=== PATIENT | female | born 1960 | race Caucasian/White ===

== ENCOUNTER 2018-04-22 04:04 | Inpatient (IN) | payer OTHER ==
[~2018-04-22] VITALS: Ht 170.2 cm; Wt 77.1 kg
--- NOTE | 2018-04-22 04:26 | ED GI/GU/ABDOMINAL COMPLAINT ---
History of Present Illness General Chief Complaint: Abdominal Pain/Flank Pain Stated Complaint: PT C/O ABD PAIN SINCE YESTERDAY AFTERNOON,+N/V/D Source: patient, family Exam Limitations: no limitations Vital Signs & Intake/Output Vital Signs & Intake/Output Vital Signs Date Time Temp Pulse Resp B/P B/P Pulse O2 O2 Flow FiO2 Mean Ox Delivery Rate 04/22 0415 99.8 103 20 114/77 97 Room Air Allergies Coded Allergies: Penicillins (UNKNOWN 04/22/18) Triage Note: PT FROM HOME WITH C/O LOWER ABD PAIN AILYN IS SHARP ON RIGHT LOWE RQUAD AND DULL ON LEFT LOWER QUAD. PT REPORTS +N/V/D. DENIES HX OF KIDNEY STONES. Triage Nurses Notes Reviewed? yes ? n Is pt currently ? No Onset: Gradual Duration: hour(s): Timing: recent history Quality/Severity: cramping Location: suprapubic Radiation: no radiation Activities at Onset: none Modifying Factors: Worsens With: palpation, vomiting. Associated Symptoms: abdominal pain, diarrhea, nausea/vomiting HPI: 57 yo woman h/o diverticulosis, IBS presents with nausea, vomiting, diarrhea since yesterday at approximately 2:30pm , soon after eating a lettuce salad at a restaurant. She shares that "I just keep vomiting... and the diarrhea is bad." She notes also right lower quadrant, left lower quadrant abdominal pain, sharp, associated with nausea and vomiting. She has no fever, chills, chest pain. Past History Travel History Traveled to [place] past 21 day No Medical History Any Pertinent Medical History? 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 No Review of Systems Review of Systems Constitutional: Reports: no symptoms. EENTM: Reports: no symptoms. Respiratory: Reports: no symptoms. Cardiovascular: Reports: no symptoms. GI: Reports: no symptoms. Genitourinary: Reports: no symptoms. Musculoskeletal: Reports: no symptoms. Skin: Reports: no symptoms. Neurological/Psychological: Reports: no symptoms. Hematologic/Endocrine: Reports: no symptoms. Immunologic/Allergic: Reports: no symptoms. All Other Systems: Reviewed and Negative Physical Exam Physical Exam General Appearance: well developed/nourished, moderate distress Head: atraumatic, normal appearance Eyes: Bilateral: normal appearance. Ears, Nose, Throat, Mouth: hearing grossly normal, moist mucous membrane Neck: normal inspection, supple, full range of motion Respiratory: normal breath sounds Cardiovascular: regular rate/rhythm Gastrointestinal: normal bowel sounds, soft, right and left lower quadrant tenderness to palpation, no distension. Back: normal inspection Extremities: normal range of motion Neurologic/Psych: no motor/sensory deficits, awake, alert, oriented x 3 Skin: intact, normal color, warm/dry Core Measures ACS in differential dx? No Sepsis Present: No Sepsis Focused Exam Completed? No Progress Differential Diagnosis: food poisoning vs diverticulitis vs other. Plan of Care: Orders Procedure Date/time Status Nothing by Mouth 04/22 B Active Saline Lock 04/22 522 Active Misc Message 04/22 522 Active ED Holding Orders 04/22 522 Active Admit to inpatient 04/22 522 Active Vital Signs 04/22 522 Active Code Status 04/22 522 Active TROPONIN LEVEL 04/22 408 Complete LIPASE 04/22 040 Complete HEPATIC FUNCTION PANEL 04/22 408 Complete CBC WITHOUT DIFFERENTIAL 04/22 408 Complete BASIC METABOLIC PANEL 04/22 0408 Complete AMYLASE 04/22 040 Complete EKG 04/22 408 Active Current Medications Sig/Eleno Start time Last Medication Dose Stop Time Status Admin Metronidazole 500 MG ONCE ONE 04/22 0515 AC (Flagyl) 04/22 0614 N/A 1 UNIT (No Carrier) Sodium Chloride 1,000 ML BOLUS ONE 04/22 0445 AC 04/22 (Normal Saline 0.9%) 04/22 0544 0444 Laboratory Tests 04/22/18 0445: Anion Gap 11, Estimated GFR > 60, BUN/Creatinine Ratio 14.4, Glucose 162 H, Calcium 9.6, Total Bilirubin 1.2, Direct Bilirubin 0.3, AST 20, ALT 24, Alkaline Phosphatase 84, Troponin I < 0.01, Total Protein 7.3, Albumin 4.3, Amylase 61, Lipase 32, CBC w Diff MAN DIFF ORDERED, RBC 4.94, MCV 82.3, MCH 27.7, MCHC 33.7, RDW 13.7, MPV 8.7, Gran % 91.6 H, Lymphocytes % 5.2 L, Monocytes % 3.0, Eosinophils % 0, Basophils % 0.2, Absolute Granulocytes 15.4 H, Segmented Neutrophils 92 H, Band Neutrophils 1, Absolute Lymphocytes 0.9 L, Lymphocytes 6 L, Monocytes 1 L, Absolute Monocytes 0.5, Absolute Eosinophils 0, Absolute Basophils 0, Platelet Estimate ADEQUATE, Normocytic RBCs VERIFIED, Normochromic RBCs VERIFIED, Fld Total RBCs Counted 100 Initial ED EKG: sinus, no acute changes Departure Departure Disposition: STILL A PATIENT Condition: Stable Clinical Impression Primary Impression: Abdominal pain Secondary Impressions: Diverticulitis of colon with perforation Referrals: Jaron Valiente MD (PCP/Family) Departure Forms: Customer Survey General Discharge Information Admission Note Spoke With: Kevin MARTINEZ,Pardeep Sun Documentation of Exam: Documentation of any treatments & extenuating circumstances including Concerns Regarding Discharge (functional status, medication knowledge or non-compliance, living conditions, etc.) that warrant an admission rather than observation: pt with perforated diverticulitis, merits iv abx, bowel rest.
[2018-04-22 04:54] LABS: ABSOLUTE BASOPHIL COUNT 0 /CUMM (0.0-0.2); ABSOLUTE EOSINOPHIL COUNT 0 /CUMM (0.0-0.7); ABSOLUTE GRANULOCYTE CT 15.4 /CUMM (1.4-6.5); ABSOLUTE LYMPH COUNT 0.9 /CUMM (1.2-3.4); ABSOLUTE MONOCYTE COUNT 0.5 /CUMM (0.10-0.60); BASOPHIL % 0.2 % (0.0-2.0); EOSINOPHIL % 0 % (0-5); GRANULOCYTE % 91.6 % (42.2-75.2); HEMATOCRIT 40.7 % (37-47); MEAN CORPUSCULAR HGB 27.7 PG (27.0-31.0); MEAN CORPUSCULAR HGB CONC 33.7 G/DL (33.0-37.0); MEAN CORPUSCULAR VOLUME 82.3 FL (81.0-99.0); MEAN PLATELET VOLUME 8.7 FL (7.4-10.4); PLATELET COUNT 226 /CUMM (130-400); RBC DISTRIBUTION WIDTH 13.7 % (11.5-14.5); RED BLOOD CELL CT 4.94 /CUMM (4.20-5.40); WHITE BLOOD CELL COUNT 16.8 /CUMM (4.8-10.8)
--- NOTE | 2018-04-22 05:15 | CT SCAN REPORT ---
EXAMINATION: CT ABDOMEN AND PELVIS WITHOUT CONTRAST CLINICAL INFORMATION: Abdominal pain. COMPARISON: None TECHNIQUE: Multidetector volumetric imaging was performed from the superior aspect of the liver through the pubic symphysis. Sagittal and coronal reformatted images were obtained on the technologist's workstation. DLP: 713 mGy-cm FINDINGS: LUNG BASES: The visualized lung bases are unremarkable. LIVER, GALLBLADDER, AND BILIARY TREE: The liver is normal in size, shape, and attenuation. No focal hepatic lesion or biliary ductal dilatation is present. Prominent gallstones in the gallbladder lumen. No gallbladder wall thickening or pericholecystic fluid. PANCREAS: Unremarkable. SPLEEN: Unremarkable. ADRENAL GLANDS: Unremarkable. KIDNEYS AND URETERS: The kidneys are normal in size, shape, and attenuation. No hydronephrosis, hydroureter, or calculi seen. No perinephric stranding. BLADDER: Unremarkable. GASTROINTESTINAL TRACT: The stomach is decompressed. The small bowel is normal in caliber. No obstruction. There is colonic diverticulosis. Wall thickening of the sigmoid colon with adjacent inflammation, consistent with diverticulitis. Small foci of gas are seen extraluminally, as seen on series 2 image 82. More distal extent of free air noted in the right anterior abdomen, series 2 image 45. No fluid collection. ABDOMINAL WALL: No significant hernia is appreciated. LYMPH NODES: Normal. VASCULAR: Retroaortic left renal vein. Normal caliber aorta. PELVIC VISCERA: The uterus and adnexa are unremarkable. OSSEOUS STRUCTURES: No acute or suspicious osseous abnormality. IMPRESSION: Sigmoid diverticulitis. Perforation with multiple small foci of gas noted extraluminally. Cholelithiasis. This critical result was discussed with John Shah MD by telephone at 04/22/2018 5:11 AM and it was ascertained that the content and urgency of the report was understood at the time of direct communication.
--- NOTE | 2018-04-22 06:01 | History & Physical Pre-Op ---
Alma Moses 04/22/18 0556: General Information and HPI History of Present Illness: 57yoF presents to Ed with complaints of lower abdominal pain. PMHx significant for known diverticulosis seen on colonoscopy. 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 Surgical History Pertinent Surgical History: none Past Family/Social History Psychosocial History ETOH Use: occasional use Illicit Drug Use: denies illicit drug use Exam & Diagnostic Data Last 24 Hrs of Vital Signs/I&O Vital Signs Date Time Temp Pulse Resp B/P B/P Pulse O2 O2 Flow FiO2 Mean Ox Delivery Rate 04/225 99.8 103 20 114/77 97 Room Air Intake & Output 04/22 0800 04/22 0000 04/21 1600 Intake Total 0 Output Total Balance 0 Intake, Oral 0 Patient 210 lb Weight Weight Reported by Patient Measurement Method Last 24 Hrs of Labs/Lorenzo: Laboratory Tests 04/22/18 0445: Anion Gap 11, Estimated GFR > 60, BUN/Creatinine Ratio 14.4, Glucose 162 H, Calcium 9.6, Total Bilirubin 1.2, Direct Bilirubin 0.3, AST 20, ALT 24, Alkaline Phosphatase 84, Troponin I < 0.01, Total Protein 7.3, Albumin 4.3, Amylase 61, Lipase 32, CBC w Diff MAN DIFF ORDERED, RBC 4.94, MCV 82.3, MCH 27.7, MCHC 33.7, RDW 13.7, MPV 8.7, Gran % 91.6 H, Lymphocytes % 5.2 L, Monocytes % 3.0, Eosinophils % 0, Basophils % 0.2, Absolute Granulocytes 15.4 H, Segmented Neutrophils 92 H, Band Neutrophils 1, Absolute Lymphocytes 0.9 L, Lymphocytes 6 L, Monocytes 1 L, Absolute Monocytes 0.5, Absolute Eosinophils 0, Absolute Basophils 0, Platelet Estimate ADEQUATE, Normocytic RBCs VERIFIED, Normochromic RBCs VERIFIED, Fld Total RBCs Counted 100 Diagnostic Data Other Results SERVICE DATE: 04/22/18-436 EXAM TYPE: CAT - CT ABD & PELVIS W/O IV CONTRAS EXAMINATION: CT ABDOMEN AND PELVIS WITHOUT CONTRAST CLINICAL INFORMATION: Abdominal pain. COMPARISON: None TECHNIQUE: Multidetector volumetric imaging was performed from the superior aspect of the liver through the pubic symphysis. Sagittal and coronal reformatted images were obtained on the technologist's workstation. DLP: 713 mGy-cm FINDINGS: LUNG BASES: The visualized lung bases are unremarkable. LIVER, GALLBLADDER, AND BILIARY TREE: The liver is normal in size, shape, and attenuation. No focal hepatic lesion or biliary ductal dilatation is present. Prominent gallstones in the gallbladder lumen. No gallbladder wall thickening or pericholecystic fluid. PANCREAS: Unremarkable. SPLEEN: Unremarkable. ADRENAL GLANDS: Unremarkable. KIDNEYS AND URETERS: The kidneys are normal in size, shape, and attenuation. No hydronephrosis, hydroureter, or calculi seen. No perinephric stranding. BLADDER: Unremarkable. GASTROINTESTINAL TRACT: The stomach is decompressed. The small bowel is normal in caliber. No obstruction. There is colonic diverticulosis. Wall thickening of the sigmoid colon with adjacent inflammation, consistent with diverticulitis. Small foci of gas are seen extraluminally, as seen on series 2 image 82. More distal extent of free air noted in the right anterior abdomen, series 2 image 45. No fluid collection. ABDOMINAL WALL: No significant hernia is appreciated. LYMPH NODES: Normal. VASCULAR: Retroaortic left renal vein. Normal caliber aorta. PELVIC VISCERA: The uterus and adnexa are unremarkable. OSSEOUS STRUCTURES: No acute or suspicious osseous abnormality. IMPRESSION: Sigmoid diverticulitis. Perforation with multiple small foci of gas noted extraluminally. Cholelithiasis. Assessment/Plan Assessment/Plan: A- 57yoF with sigmoid diverticulitis with microperforation, P- connservative mgmt with rocephin/flagyl npo ivf, iv meds prn pain meds, antiemetics trend labs will dw Bonnie Guardado 04/22/18 7118: General Information and HPI History of Present Illness: This a 57 yo female, previously healthy, that presented to the ED with complaints of nausea/vomiting/diarrhea of one day duration. The pt has a PMHx of diverticulosis and IBS. This all began yesterday after she went out to lunch and ate a salad and soup and upon coming home at 2:30 pm she began having sharp abdominal pain. The pain is in her RLQ and LLQ and today it is worst in her RLQ. Yesterday the pt had 4 episodes of vomiting w/ associated nausea and diarrhea. She tried taking some imodium at home without relief. The pain is sharp in nature and has been worsening since yesterday. Any movement or jarring worsens the pt's pain and this morning it got so bad that she came the ED. Pt denies any blood in stool, flank pain, recent travel, cp, sob. Past History Medical History Gastrointestinal: diverticulitis, irritable bowel syndrome Surgical History Pertinent Surgical History: none Past Family/Social History Family History Relations & Conditions if any BROTHER Relation not specified for: FHx: diverticulitis Irritable bowel syndrome Review of Systems Review of Systems Constitutional: Reports: chills. Denies: diaphoresis, fever. Cardiovascular: Denies: chest pain. Respiratory: Denies: short of breath. GI: Reports: abdominal pain, diarrhea, nausea, vomiting. Denies: bloody stool. Genitourinary: Reports: dysuria, pain. Skin: Denies: change in skin color, rash. Exam & Diagnostic Data Last 24 Hrs of Vital Signs/I&O Vital Signs Date Time Temp Pulse Resp B/P B/P Pulse O2 O2 Flow FiO2 Mean Ox Delivery Rate 04/22 0609 98.9 77 18 94/51 93 Room Air 04/22 0415 99.8 103 20 114/77 97 Room Air Intake & Output 04/22 0800 04/22 0000 04/21 1600 Intake Total 1000 Output Total Balance 1000 Intake, IV 1000 Intake, Oral 0 Patient 210 lb Weight Weight Reported by Patient Measurement Method Exam: Gen: Pt is O&Ax3, laying in bed, appears in pain, in no acute distress Lungs: CTA Heart: RRR, s1 and s2 normal Abdomen: hyperactive bs, soft, non-distended, tenderness to palpation of RLQ and LLQ. No rebound tenderness. Skin: warm and dry Ext: no edema bilaterally Assessment/Plan As Ranked By This Provider Problem List: 1. Diverticulitis of colon with perforation 2. 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 Patient seen and examined 04/22/2008 at 8:30 AM. Patient presents with acute onset, first episode of severe lower abdominal pain after eating a salad for lunch. She experience nausea vomiting diarrhea followed by pain. It has been unrelenting. Diverticulosis by colonoscopy [address] scan shows acute diverticulitis. Past medical history is unrevealing. She is a non-smoker occasional drinker no illicit drug use. Examination reveals overweight woman in no distress alert and oriented. Lungs are clear and heart is regular. Abdomen shows focal involuntary guarding in left lower quadrant. There is tenderness throughout the suprapubic and right lower quadrant as well. No hernias no mass normal. Limited data shows leukocytosis of 16,000. Electrolytes within normal limits. CT scan images were personally reviewed and showed telemetry changes of the mid sigmoid colon. There is a foci of extraluminal air in the region. Impression is that of acute sigmoid diverticulitis with microperforation, first episode. There is no clinical indications that she will require emergency surgery. Plan will be medical with IV antibiotics and bowel rest. Serial abdominal examination will be performed.
[2018-04-22] MEDS ORDERED: CITRACAL + D E1 EACH PO (08:57)
[2018-04-22] MEDS ORDERED: CALTRATE 600 +1 EACH PO (08:58)
[2018-04-22 11:26] VITALS: BP 94/51
[2018-04-22 14:38] VITALS: BP 118/80
[2018-04-22 21:44] VITALS: BP 110/60
[2018-04-23 06:03] VITALS: BP 100/70
--- NOTE | 2018-04-23 07:33 | PN- General Surgery ---
See Addendum Subjective Subjective: Patient's he feels significantly better. States her symptoms are at a 4 out of 10. Mild pain in the lower abdominal region with palpation. She is hungry. She is passing gas. She denies any fever or flulike illness. The pain medication is helping her. She had a mild headache that was controlled with Tylenol overnight. No nausea no vomiting. No bowel movement Objective Vital Signs and I&Os Vital Signs Date Time Temp Pulse Resp B/P B/P Pulse O2 O2 Flow FiO2 Mean Ox Delivery Rate 04/23 0603 98.7 82 20 100/70 95 04/22 2144 99.4 83 20 110/60 95 04/22 1438 98.3 75 20 118/80 95 Room Air 04/22 1358 98.4 64 18 118/54 97 Room Air 04/22 1126 98.1 71 18 94/51 94 Room Air 04/22 0740 98.1 71 18 94/51 93 Room Air Intake & Output 04/23 0800 04/23 0000 04/22 1600 04/22 0800 04/22 0000 04/21 1600 Intake Total 2695 465 4947 1000 Output Total Balance 0742 465 7242 1000 Intake, IV 3420 967 9291 1000 Intake, Oral 0 300 0 Patient 170 lb 210 lb Weight Weight Estimated Reported by Patient Measurement Method Physical Exam: Well-developed well-nourished no apparent distress. HEENT: Atraumatic, extraocular motion intact Neck: Supple, no lymphadenopathy Respiratory: No respiratory distress Abdomen: Tenderness to the right and left lower quadrants which is mild. No peritoneal signs. Minimal distention. Positive bowel sounds. Extremities: No edema, no calf pain Neuro: Alert and oriented x3 Psych: Mood affect normal, normal memory normal judgment. Skin: Warm and dry, no rash on exposed skin Results Last 48 Hours of Labs: Laboratory Tests 04/23 04/22 0627 0445 Chemistry Sodium (137 - 145 mmol/L) Pending 136 L Potassium (3.5 - 5.1 mmol/L) Pending 4.1 Chloride (98 - 107 mmol/L) Pending 100 Carbon Dioxide (22 - 30 mmol/L) Pending 25 Anion Gap (5 - 16) Pending 11 BUN (7 - 17 mg/dL) Pending 13 Creatinine (0.5 - 1.0 mg/dL) Pending 0.9 Estimated GFR (>60 ml/min) > 60 BUN/Creatinine Ratio (7 - 25 %) Pending 14.4 Glucose (65 - 99 mg/dL) 162 H Calcium (8.4 - 10.2 mg/dL) 9.6 Total Bilirubin (0.2 - 1.3 mg/dL) 1.2 Direct Bilirubin (< 0.4 mg/dL) 0.3 AST (14 - 36 U/L) 20 ALT (9 - 52 U/L) 24 Alkaline Phosphatase (<127 U/L) 84 Troponin I (< 0.11 ng/ml) < 0.01 Total Protein (6.3 - 8.2 g/dL) 7.3 Albumin (3.5 - 5.0 g/dL) 4.3 Amylase (30 - 110 U/L) 61 Lipase (23 - 300 U/L) 32 Hematology CBC w Diff Pending MAN DIFF ORDERED WBC (4.8 - 10.8 /CUMM) Pending 16.8 H RBC (4.20 - 5.40 /CUMM) Pending 4.94 Hgb (12.0 - 16.0 G/DL) Pending 13.7 Hct (37 - 47 %) Pending 40.7 MCV (81.0 - 99.0 FL) Pending 82.3 MCH (27.0 - 31.0 PG) Pending 27.7 MCHC (33.0 - 37.0 G/DL) Pending 33.7 RDW (11.5 - 14.5 %) Pending 13.7 Plt Count (130 - 400 /CUMM) Pending 226 MPV (7.4 - 10.4 FL) Pending 8.7 Gran % (42.2 - 75.2 %) 91.6 H Lymphocytes % (20.5 - 51.1 %) 5.2 L Monocytes % (1.7 - 9.3 %) 3.0 Eosinophils % (0 - 5 %) 0 Basophils % (0.0 - 2.0 %) 0.2 Absolute Granulocytes (1.4 - 6.5 /CUMM) 15.4 H Segmented Neutrophils (42.2 - 75.2 %) 92 H Band Neutrophils (0.0 - 5.0 %) 1 Absolute Lymphocytes (1.2 - 3.4 /CUMM) 0.9 L Lymphocytes (20.5 - 51.1 %) 6 L Monocytes (1.7 - 9.3 %) 1 L Absolute Monocytes (0.10 - 0.60 /CUMM) 0.5 Absolute Eosinophils (0.0 - 0.7 /CUMM) 0 Absolute Basophils (0.0 - 0.2 /CUMM) 0 Platelet Estimate (ADEQUATE) ADEQUATE Normocytic RBCs VERIFIED Normochromic RBCs VERIFIED Other Body Source Fld Total RBCs Counted (%) 100 Assessment/Plan Assessment/Plan Hospital day #2 status post admission for sigmoid diverticulitis with microperforation Clinically improving Follow labs Continue IV fluids Continue Rocephin and Flagyl Heparin subcu for DVT prophylaxis Encourage ambulation Pain medication as needed, will convert to oral pain medicine Will discuss with Dr. Brown advancement of diet Core Measures Venous Thromboembolism VTE Risk Factors Age>40 No Mechanical VTE Prophylaxis d/t N/A MechProphylax Ordered No VTE Pharm Prophylaxis d/t NA PharmProphylax ordered
[2018-04-23 08:10] LABS: ABSOLUTE BASOPHIL COUNT 0 /CUMM (0.0-0.2); ABSOLUTE EOSINOPHIL COUNT 0.1 /CUMM (0.0-0.7); ABSOLUTE MONOCYTE COUNT 0.5 /CUMM (0.10-0.60); EOSINOPHIL % 0.5 % (0-5); MEAN CORPUSCULAR HGB 27.9 PG (27.0-31.0); MEAN CORPUSCULAR HGB CONC 33.4 G/DL (33.0-37.0)
[2018-04-23 08:24] LABS: ABSOLUTE GRANULOCYTE CT 9.6 /CUMM (1.4-6.5); ABSOLUTE LYMPH COUNT 1.4 /CUMM (1.2-3.4); BASOPHIL % 0.2 % (0.0-2.0); MEAN CORPUSCULAR VOLUME 83.4 FL (81.0-99.0); MEAN PLATELET VOLUME 9.5 FL (7.4-10.4); PLATELET COUNT 154 /CUMM (130-400); RBC DISTRIBUTION WIDTH 13.6 % (11.5-14.5); RED BLOOD CELL CT 3.87 /CUMM (4.20-5.40); WHITE BLOOD CELL COUNT 11.5 /CUMM (4.8-10.8)
[2018-04-23 08:30] LABS: HEMATOCRIT 32.3 % (37-47)
[2018-04-23] MEDS ORDERED: PERCOCET 5-3251 EACH PO (13:43)
[2018-04-23] MEDS ORDERED: AUGMENTIN 875-1 EACH PO (13:43)
--- NOTE | 2018-04-23 13:47 | Patient Discharge Instructions ---
Discharge Instructions General Discharge Information You were seen/treated for: Acute complicated diverticulitis with microperforation You had these procedures: None Watch for these problems: Worsening abdominal pain, nausea, vomiting, fever Other wound care: None Special Instructions: Avoid straining and excessive physical exertion until follow-up visit. Call the surgeon or present to the ER with above-mentioned concerns Continue taking her antibiotics as directed Take pain medication as needed,you may take Tylenol or Motrin as well Diet Continue normal diet: No Recommended Diet: Low Residue (/low fiber) Activity Full Activity/No Limits: No Activity Self Limited: Yes Acute Coronary Syndrome Inclusion Criteria At DC or during hospital stay patient has or had the following: ACS DIAGNOSIS No Discharge Core Measures Meds if any: Prescribed or Continued at Discharge Meds if any: NOT Prescribed or Continued at Discharge Congestive Heart Failure Inclusion Criteria At DC or during hospital stay patient has or had the following: CHF DIAGNOSIS No Discharge Core Measures Meds if any: Prescribed or Continued at Discharge Meds if any: NOT Prescribed or Continued at Discharge Cerebrovascular accident Inclusion Criteria At DC or during hospital stay patient has or had the following: CVA/TIA Diagnosis No Discharge Core Measures Meds if any: Prescribed or Continued at Discharge Meds if any: NOT Prescribed or Continued at Discharge Venous thromboembolism Inclusion Criteria VTE Diagnosis No VTE Type NONE VTE Confirmed by (Test) NONE Discharge Core Measures - Per Current guidelines, there needs to be overlap - treatment for the first 5 days of Warfarin therapy. - If discharged on Warfarin prior to 5 days of - overlap therapy, the patient will need to be - assessed for post discharge needs including - *Post discharge parental anticoagulation - *Warfarin and/or parental anticoagulation education - *Follow up date to check INR post discharge At least 5 days overlap therapy as Inpatient No Meds if any: Prescribed or Continued at Discharge Note: Overlap Therapy is Warfarin and Anticoagulant Meds if any: NOT Prescribed or Continued at Discharge
[2018-04-23 14:30] VITALS: BP 110/84
[2018-04-23 22:03] VITALS: BP 114/70
[2018-04-24 05:50] VITALS: BP 116/70
--- NOTE | 2018-04-24 07:13 | PN- Student ---
Bonnie Razo 04/24/18 0708: Subjective Subjective: Pt this morning is in great spirits and states she is feeling great and is motivated to get home. She did have a migraine yesterday causing her to vomit. After being given tylenol the migraine improved- n/v went away. She tolerated her full liquid diet yesterday, will try low fiber diet for breakfast. She is oob, ambulating, voiding. Passed BM/flatus. Pain is significantly improved this morning. No n/v overnight. Objective Objective: Gen: o&Ax3, laying in bed, comfortably Lung: CTA Heart: s1 and s2, RRR Abd: normal bs, soft, nondistended/nontender, no guarding or rigidity LE: warm/dry/no edema Results Results: Laboratory Tests 04/24/18 0613: Sodium Pending, Potassium Pending, Chloride Pending, Carbon Dioxide Pending, Anion Gap Pending, CBC w Diff Pending, WBC Pending, RBC Pending, Hgb Pending, Hct Pending, MCV Pending, MCH Pending, MCHC Pending, RDW Pending, Plt Count Pending, MPV Pending 04/23/18 0627: Anion Gap 4 L, Estimated GFR > 60, BUN/Creatinine Ratio 10.0, CBC w Diff NO MAN DIFF REQ, RBC 3.87 L, MCV 83.4, MCH 27.9, MCHC 33.4, RDW 13.6, MPV 9.5, Gran % 83.0 H, Lymphocytes % 11.7 L, Monocytes % 4.6, Eosinophils % 0.5, Basophils % 0.2, Absolute Granulocytes 9.6 H, Absolute Lymphocytes 1.4, Absolute Monocytes 0.5, Absolute Eosinophils 0.1, Absolute Basophils 0 04/22/18 0445: Anion Gap 11, Estimated GFR > 60, BUN/Creatinine Ratio 14.4, Glucose 162 H, Calcium 9.6, Total Bilirubin 1.2, Direct Bilirubin 0.3, AST 20, ALT 24, Alkaline Phosphatase 84, Troponin I < 0.01, Total Protein 7.3, Albumin 4.3, Amylase 61, Lipase 32, CBC w Diff MAN DIFF ORDERED, RBC 4.94, MCV 82.3, MCH 27.7, MCHC 33.7, RDW 13.7, MPV 8.7, Gran % 91.6 H, Lymphocytes % 5.2 L, Monocytes % 3.0, Eosinophils % 0, Basophils % 0.2, Absolute Granulocytes 15.4 H, Segmented Neutrophils 92 H, Band Neutrophils 1, Absolute Lymphocytes 0.9 L, Lymphocytes 6 L, Monocytes 1 L, Absolute Monocytes 0.5, Absolute Eosinophils 0, Absolute Basophils 0, Platelet Estimate ADEQUATE, Normocytic RBCs VERIFIED, Normochromic RBCs VERIFIED, Fld Total RBCs Counted 100 Assessment/Plan Assessment: 57 yo female with a PMHx of IBS, diverticulosis that presented to ED w/ abdominal pain found to have micro perforated sigmoid diverticulitis. Is being managed medically, stable at this time. Plan: -Low fiber diet ordered for breakfast, if pt tolerates well, she may be ready for d/c today- Discuss w/ Dr. Brown -AM labs pending -Encourage po intake, oob, ambulation -Pt may need short course of PO abx at home -Pain well controlled w/ tylenol -discharge planning Dez Ruiz 04/24/18 0802: Resident Review Statement Resident Statement: amended to note Other Findings: Agree with above, see my note from same day
[2018-04-24 07:32] LABS: ABSOLUTE BASOPHIL COUNT 0 /CUMM (0.0-0.2); ABSOLUTE EOSINOPHIL COUNT 0.1 /CUMM (0.0-0.7); ABSOLUTE GRANULOCYTE CT 9.3 /CUMM (1.4-6.5); ABSOLUTE LYMPH COUNT 1.1 /CUMM (1.2-3.4); ABSOLUTE MONOCYTE COUNT 0.5 /CUMM (0.10-0.60); BASOPHIL % 0.2 % (0.0-2.0); EOSINOPHIL % 0.8 % (0-5); GRANULOCYTE % 84.5 % (42.2-75.2); HEMATOCRIT 33.6 % (37-47); MEAN CORPUSCULAR HGB 28.5 PG (27.0-31.0); MEAN CORPUSCULAR VOLUME 83.7 FL (81.0-99.0); MEAN PLATELET VOLUME 9.5 FL (7.4-10.4); PLATELET COUNT 154 /CUMM (130-400); RBC DISTRIBUTION WIDTH 13.8 % (11.5-14.5); RED BLOOD CELL CT 4.01 /CUMM (4.20-5.40)
--- NOTE | 2018-04-24 07:35 | PN- General Surgery ---
Subjective Subjective: No pain, no fever, no flulike illness, no nausea or vomiting. Tolerating diet without difficulty. She is hungry. She feels well today and would like to be discharged home Objective Vital Signs and I&Os Vital Signs Date Time Temp Pulse Resp B/P B/P Pulse O2 O2 Flow FiO2 Mean Ox Delivery Rate 04/24 0550 97.7 73 20 116/70 96 04/23 2203 98.5 74 20 114/70 96 Room Air 04/23 1430 99.1 79 18 110/84 97 Intake & Output 04/24 0804/24 0000 04/23 1600 04/23 0804/23 0000 04/22 1600 Intake Total 265 498 6649 7886 150 4617 Output Total Balance 304 109 5937 2861 715 8388 Intake, IV 500 8174 283 4862 Intake, Oral 100 240 600 0 300 Number 2 Bowel Movements Patient 170 lb Weight Weight Estimated Measurement Method Physical Exam: Well-developed well-nourished no apparent distress. HEENT: Atraumatic, extraocular motion intact Neck: Supple, no lymphadenopathy Respiratory: No respiratory distress Abdomen: No tenderness, no distention, normal bowel sounds Extremities: No edema, no calf pain Neuro: Alert and oriented x3 Psych: Mood affect normal, normal memory normal judgment. Skin: Warm and dry, no rash on exposed skin Results Last 48 Hours of Labs: Laboratory Tests 04/24 04/23 0613 0627 Chemistry Sodium (137 - 145 mmol/L) Pending 136 L Potassium (3.5 - 5.1 mmol/L) Pending 3.8 Chloride (98 - 107 mmol/L) Pending 107 Carbon Dioxide (22 - 30 mmol/L) Pending 25 Anion Gap (5 - 16) Pending 4 L BUN (7 - 17 mg/dL) 8 Creatinine (0.5 - 1.0 mg/dL) 0.8 Estimated GFR (>60 ml/min) > 60 BUN/Creatinine Ratio (7 - 25 %) 10.0 Hematology CBC w Diff Pending NO MAN DIFF REQ WBC (4.8 - 10.8 /CUMM) Pending 11.5 H RBC (4.20 - 5.40 /CUMM) Pending 3.87 L Hgb (12.0 - 16.0 G/DL) Pending 10.8 L Hct (37 - 47 %) Pending 32.3 L MCV (81.0 - 99.0 FL) Pending 83.4 MCH (27.0 - 31.0 PG) Pending 27.9 MCHC (33.0 - 37.0 G/DL) Pending 33.4 RDW (11.5 - 14.5 %) Pending 13.6 Plt Count (130 - 400 /CUMM) Pending 154 MPV (7.4 - 10.4 FL) Pending 9.5 Gran % (42.2 - 75.2 %) 83.0 H Lymphocytes % (20.5 - 51.1 %) 11.7 L Monocytes % (1.7 - 9.3 %) 4.6 Eosinophils % (0 - 5 %) 0.5 Basophils % (0.0 - 2.0 %) 0.2 Absolute Granulocytes (1.4 - 6.5 /CUMM) 9.6 H Absolute Lymphocytes (1.2 - 3.4 /CUMM) 1.4 Absolute Monocytes (0.10 - 0.60 /CUMM) 0.5 Absolute Eosinophils (0.0 - 0.7 /CUMM) 0.1 Absolute Basophils (0.0 - 0.2 /CUMM) 0 Assessment/Plan Assessment/Plan Hospital day #3 status post admission for sigmoid diverticulitis with microperforation Clinically improving Follow labs Continue antibiotics, Augmentin as outpatient Heparin subcu for DVT prophylaxis Encourage ambulation Advance diet to low fiber diet/low residue and discharge home later today if tolerates diet Core Measures Venous Thromboembolism VTE Risk Factors Age>40 No Mechanical VTE Prophylaxis d/t N/A MechProphylax Ordered No VTE Pharm Prophylaxis d/t NA PharmProphylax ordered
[2018-04-24 13:42] VITALS: BP 120/60
== END 2018-04-24 14:24 | DRG 392 ==
LOC: ERH 04:04 → 2NA 05:22 → ERHI 05:22 → ENRESERV 13:33 → ENTRNSPT 14:10 → EDTRNSPTSTS 14:12 → EDTRNSPT 14:12 → 2NA 14:17 → CMPTRNSPT 14:56 → ENPENDDIS 04-24 09:25 → 2NA 04-24 14:24
PROVIDERS: Pediatrics; Physician Assistant Surgical
DX: K57.20 Diverticulitis of large intestine with perforation and abscess without bleeding (principal); K58.9 Irritable bowel syndrome, unspecified; Z88.0 Allergy status to penicillin
CPT/HCPCS: 2NASP; 36415; 36592; 74176; 82436; 93005; 93010; 96361; 96374; 96375; 96376; J0131; J0696; J1644; J1885; J2405; J7042